=== PATIENT | male | born 1985 | race Caucasian/White ===

== ENCOUNTER 2019-11-13 15:50 | Emergency (ER) | payer OTHER, SELFPAY ==
[2019-11-13] MEDS ORDERED: Ondansetron ODT 4 MG TAB ONE (16:20)
[2019-11-13] MEDS ORDERED: Acetaminophen 500 MG TAB ONE (16:20)
== END 2019-11-13 16:38 | disposition home or self-care (01) ==
LOC: MADERS 15:50
DX: R51 Headache (principal)
CPT/HCPCS: 99283; Q0162

== ENCOUNTER 2022-07-26 14:06 | Emergency (ER) | payer OTHER ==
[2022-07-26] MEDS ORDERED: Amoxicillin/Potassium Clav 875 MG TAB ONE (17:40)
== END 2022-07-26 17:50 | disposition home or self-care (01) ==
LOC: MADERS 14:06
DX: K04.7 Periapical abscess without sinus (principal); K05.10 Chronic gingivitis, plaque induced; K02.9 Dental caries, unspecified
CPT/HCPCS: 99282